=== PATIENT | female | born 1995 | race African-American/Black ===

== ENCOUNTER 2018-01-26 01:21 | Emergency (ER) | payer OTHER ==
[2018-01-26 01:31] VITALS: BP 131/85; PULSE 74; RESP 16; TEMP 98.1
[2018-01-26] MEDS ORDERED: ACETAMINOPHEN TAB 325 MG TAB PO STA (02:29)
[2018-01-26] MEDS ORDERED: BENZOCAINE/MENTHOL LOZENG 1 EACH LOZENGE MUCOUS MEM STA (02:34)
[2018-01-26] MEDS ORDERED: guaiFENesin SYRUP 100MG/5ML 200 MG/10 ML CUP PO STA (02:38)
--- NOTE | 2018-01-26 02:43 | ED ---
URI HPI - General Chief Complaint: Upper Respiratory Infection Stated Complaint: flu symptoms Time Seen by Provider: 01/26/18 02:18 Source: patient Mode of arrival: ambulatory Limitations: no limitations - History of Present Illness Initial Comments: 22-year-old female patient presents to the emergency department today for evaluation of cough, scratchy throat, nasal congestion. Patient states that she has had symptoms since this morning. Nasal drainage is clear. Denies any sputum production with the cough. States that she is 7 weeks is was unsure what she could take [id number] for symptoms. She denies any chest pain or shortness of breath with this. She denies any fevers or chills. Denies any ear pain. She denies any abdominal pain or cramping. Denies any abnormal vaginal bleeding or discharge. Patient denies any recent rash, nausea, vomiting, diarrhea, constipation, back pain, numbness, tingling, dizziness, weakness, hematuria, dysuria, urinary urgency, urinary frequency, headache, visual changes, or any other complaints. - Related Data Previous Rx's Medication Instructions Recorded Famotidine [Pepcid] 20 mg PO BID #10 tablet 02/26/15 diphenhydrAMINE [Benadryl] 50 mg PO HS PRN #5 capsule 02/26/15 predniSONE 50 mg PO DAILY #3 tab 02/26/15 Allergies Allergy/AdvReac Type Severity Reaction Status Date / Time shellfish derived [Shellfish] Allergy Rash/Hives Verified 01/26/18 01:31 Review of Systems ROS Statement: Those systems with pertinent positive or pertinent negative responses have been documented in the HPI. ROS Other: All systems not noted in ROS Statement are negative. Past Medical History Past Medical History: Asthma History of Any Multi-Drug Resistant Organisms: MRSA Date of last positivie culture/infection: 2009 MDRO Source:: arm Past Surgical History: Orthopedic Surgery Past Psychological History: No Psychological Hx Reported Smoking Status: Never smoker Past Alcohol Use History: None Reported Past Drug Use History: Marijuana General Exam Limitations: no limitations General appearance: alert, in no apparent distress, other (This is a well- developed, well-nourished adult female patient in no acute distress. Vital signs upon presentation are temperature 98.1F, pulse 74, respirations 16, blood pressure 131/85, pulse ox 100% on room air.) Eye exam: Present: normal appearance, PERRL, EOMI. Absent: scleral icterus, conjunctival injection, periorbital swelling ENT exam: Present: mucous membranes moist, TM's normal bilaterally. Absent: normal exam, normal oropharynx (Pharyngeal erythema. No tonsillar exudate or hypertrophy.) Respiratory exam: Present: normal lung sounds bilaterally. Absent: respiratory distress, wheezes, rales, rhonchi, stridor Cardiovascular Exam: Present: regular rate, normal rhythm, normal heart sounds. Absent: systolic murmur, diastolic murmur, rubs, gallop, clicks GI/Abdominal exam: Present: soft, normal bowel sounds. Absent: distended, tenderness, guarding, rebound, rigid Neurological exam: Present: alert, oriented X3, CN II-XII intact Psychiatric exam: Present: normal affect, normal mood Skin exam: Present: warm, dry, intact, normal color. Absent: rash Course Vital Signs 01/26/18 01:28 Temperature 98.1 F Pulse Rate 74 Respiratory 16 Rate Blood Pressure 131/85 O2 Sat by Pulse 100 Oximetry Medical Decision Making - Medical Decision Making 22-year-old female patient presents to the emergency department today with chief complaint of upper respiratory symptoms. Symptoms include cough, sore throat, nasal congestion. Patient is afebrile reports no shortness of breath or sputum production. She is 7 weeks . She was given Tylenol, Robitussin, and cough drops here in the emergency department. She was given recommendations for symptomatic relief with bibx-umz-skkdvoq medication. She is instructed to follow-up with her astronautical engineer and primary care physician for recheck as soon as possible. Return parameters were discussed in detail. She verbalizes understanding and agrees with this plan. Disposition Clinical Impression: Viral upper respiratory infection Disposition: HOME SELF-CARE Condition: Good Instructions: Upper Respiratory Infection (ED) Additional Instructions: Some medications you may try are [id number] that are safe in : Nasal Saline (for nasal congestion) Afrin (for nasal congestion) (No longer than three days) Cough drops and lozenges (For sore throat) Tylenol (For pain and fever) Robitussin (for cough) Increase fluids. Get adequate rest. Follow up with your primary care physician or OBGYN for recheck as soon as possible. Is patient prescribed a controlled substance at d/c from ED?: No Referrals: None,Stated [Primary Care Provider] - 1-2 days Time of Disposition: 02:43
== END 2018-01-26 02:53 | disposition home or self-care (01) ==
LOC: EC 01:21
DX: O99.511 Diseases of the respiratory system complicating pregnancy, first trimester (principal); J06.9 Acute upper respiratory infection, unspecified; Z91.013 Allergy to seafood; Z86.14 Personal history of Methicillin resistant Staphylococcus aureus infection; Z3A.01 Less than 8 weeks gestation of pregnancy
CPT/HCPCS: 99283

== ENCOUNTER 2019-03-28 12:10 | Emergency (ER) | payer OTHER ==
[2019-03-28] MEDS ORDERED: ACETAMINOPHEN TAB 325 MG TAB PO STA (12:30)
[2019-03-28] MEDS ORDERED: ALBUTEROL NEBULIZED 2.5 MG/3 ML INHALATION STA (12:33)
[2019-03-28] MEDS ORDERED: predniSONE 50 MG TAB PO STA (12:33)
--- NOTE | 2019-03-28 13:11 | XR ---
EXAMINATION TYPE: XR chest 2V DATE OF EXAM: 03/28/2019 COMPARISON: 05/11/2013 HISTORY: 23-year-old female with cough and fever TECHNIQUE: PA and lateral views FINDINGS: The cardiomediastinal silhouette, aorta, and pulmonary vasculature are within normal limits. Lungs an d pleural spaces are clear. IMPRESSION: No acute cardiopulmonary process.
--- NOTE | 2019-03-28 13:16 | ED ---
URI HPI - General Chief Complaint: Upper Respiratory Infection Stated Complaint: fever/cough/sore throat Time Seen by Provider: 03/28/19 12:15 Source: patient Mode of arrival: ambulatory Limitations: no limitations - History of Present Illness Initial Comments: 23-year-old female with history of asthma presenting today for chief complaint cough congestion sore throat and ear pain. Patient states the past 2-3 days she has had congestion cough sore throat and ear pain she states she now has rib pain when she coughs bilaterally. She states she has no shortness of breath. Patient denies chest pain. Patient states the pain is likely present when she coughs. Patient denies any difficulty breathing or swallowing. Tolerating oral secretions. Patient denies for chest pain. Patient denies any nausea vomiting diarrhea or rashes. Patient denies , recent antibiotics use. Denies any previous hospitalizations or intubations secondary to asthma. Patient appears well on arrival there is no signs of acute distress. Patient has obvious nasal congestion. - Related Data Previous Rx's Medication Instructions Recorded Famotidine [Pepcid] 20 mg PO BID #10 tablet 02/26/15 diphenhydrAMINE [Benadryl] 50 mg PO HS PRN #5 capsule 02/26/15 predniSONE 50 mg PO DAILY #3 tab 02/26/15 Oseltamivir [Tamiflu] 75 mg PO Q12HR 5 Days #10 cap 03/28/19 Allergies Allergy/AdvReac Type Severity Reaction Status Date / Time shellfish derived [Shellfish] Allergy Rash/Hives Verified 03/28/19 12:11 Review of Systems ROS Statement: Those systems with pertinent positive or pertinent negative responses have been documented in the HPI. ROS Other: All systems not noted in ROS Statement are negative. Past Medical History Past Medical History: Asthma History of Any Multi-Drug Resistant Organisms: MRSA Date of last positivie culture/infection: 2009 MDRO Source:: arm Past Surgical History: Orthopedic Surgery Past Psychological History: No Psychological Hx Reported Smoking Status: Current every day smoker Past Alcohol Use History: Occasional Past Drug Use History: Marijuana General Exam - General Exam Comments Initial Comments: General: The patient is awake and alert, in no distress, and does not appear acutely ill. Eye: +3 mm pupils are equal, round and reactive to light, extra-ocular movements are intact. No nystagmus. There is normal conjunctiva bilaterally. No signs of icterus. No photophobia Ears, nose, mouth and throat: There are moist mucous membranes and no oral lesions. Oropharynx was not erythematous there is no tonsillar enlargement exudates or lesions. Uvula midline. Tympanic membranes are not erythematous or is no effusions bulging or retraction. No tenderness to palpation of the mastoid. No anterior cervical lymphadenopathy. Rhinorrhea, clear and bilateral nares. No tripoding, no drooling. Neck: The neck is supple, there is no tenderness or JVD. No nuchal rigidity Cardiovascular: There is a regular rate and rhythm. No murmur, rub or gallop is appreciated. Respiratory: Respirations are non-labored, breath sounds are equal. Mild expiratory wheeze. No stridor, rales, or rhonchi. No retractions or abdominal breathing. Gastrointestinal: Soft, non-distended, non-tender abdomen without masses or organomegaly noted. There is no rebound or guarding present. Bowel sounds are unremarkable. Musculoskeletal: Normal ROM, no tenderness. Strength 5/5. Sensation intact. Radial pulses equal bilaterally 2+. Neurological: A&O x 3. CN II-XII intact grossly, There are no obvious motor or sensory deficits. Coordination appears grossly intact. Speech appears normal, no muffling. Skin: Skin is warm and dry and no rashes or lesions are noted. No extremity edema Psychiatric: Cooperative Limitations: no limitations Course Vital Signs 03/28/19 03/28/19 03/28/19 12:12 12:50 13:02 Temperature 98.6 F Pulse Rate 86 80 84 Respiratory 16 Rate Blood Pressure 143/97 O2 Sat by Pulse 97 Oximetry 03/28/19 13:59 Temperature 99.2 F Pulse Rate 83 Respiratory 18 Rate Blood Pressure 128/75 O2 Sat by Pulse 97 Oximetry Medical Decision Making - Medical Decision Making 23-year-old female presenting today for chief complaint of sore throat congestion cough. Influenza A +. CXR clear. Lung sounds with mild expiratory wheeze improved with 1 albuterol treatment. Patient given oral prednisone in the ER. Patient will be discharged with tamiflu, outpatient PCP follow-up and instruction for symptomatically control including use of antipyretics such as Tylenol and ibuprofen. Return parameters were discussed at length patient verbalizes understanding and she was discharged appearing well after discussing case with Dr Borjas - Lab Data Lab Results 03/28/19 03/28/19 Range/Units 12:34 12:34 Influenza Type A RNA Detected H (Not Detectd) Influenza Type B (PCR) Not Detected (Not Detectd) Group A Strep Rapid Negative (Negative) Disposition Clinical Impression: Influenza A, Cough, Congestion of nasal sinus Disposition: HOME SELF-CARE Condition: Good Instructions (If sedation given, give patient instructions): Influenza (ED) Additional Instructions: Please use medication as discussed. Please follow-up with family doctor in the next 2 days. Please return to emergency room if the symptoms increase or worsen or for any other concerns. Prescriptions: Oseltamivir [Tamiflu] 75 mg PO Q12HR 5 Days #10 cap Is patient prescribed a controlled substance at d/c from ED?: No Referrals: None,Stated [Primary Care Provider] - 1-2 days [facility] [NON-STAFF] - 1-2 days Time of Disposition: 13:44
[2019-03-28 14:04] VITALS: BP 128/75; PULSE 83; RESP 18; TEMP 99.2
== END 2019-03-28 13:59 | disposition home or self-care (01) ==
LOC: EC 12:10
DX: J10.1 Influenza due to other identified influenza virus with other respiratory manifestations (principal); F17.200 Nicotine dependence, unspecified, uncomplicated; Z91.013 Allergy to seafood; Z87.09 Personal history of other diseases of the respiratory system; Z86.14 Personal history of Methicillin resistant Staphylococcus aureus infection
CPT/HCPCS: 94640; 87081; 87430; 87502; 71046; 99284; J7512

== ENCOUNTER 2019-03-29 11:22 | Emergency (ER) | payer OTHER ==
--- NOTE | 2019-03-29 13:53 | ED ---
General Adult HPI - General Chief complaint: Recheck/Abnormal Lab/Rx Stated complaint: Female Time Seen by Provider: 03/29/19 13:00 Source: patient, RN notes reviewed, old records reviewed Mode of arrival: ambulatory Limitations: no limitations - History of Present Illness Initial comments: Patient is a 23-year-old female recently diagnosed with influenza. She presents emergency department today with concern that her last sexual partner had told her that she he was positive for HPV. Patient reports that she's having no symptoms in regards to this. She states that she has had no abnormal vaginal discharge. Denies chance of . Patient states that she was recently treated with antibiotics for respiratory infection and believes that she is currently doing with the minor yeast infection. - Related Data Previous Rx's Medication Instructions Recorded Famotidine [Pepcid] 20 mg PO BID #10 tablet 02/26/15 diphenhydrAMINE [Benadryl] 50 mg PO HS PRN #5 capsule 02/26/15 predniSONE 50 mg PO DAILY #3 tab 02/26/15 Oseltamivir [Tamiflu] 75 mg PO Q12HR 5 Days #10 cap 03/28/19 Fluconazole [Diflucan] 150 mg PO ONCE #3 tab 03/29/19 Fluconazole [Diflucan] 150 mg PO ONCE #3 tab 03/29/19 Allergies Allergy/AdvReac Type Severity Reaction Status Date / Time shellfish derived [Shellfish] Allergy Rash/Hives Verified 03/29/19 12:25 Review of Systems ROS Statement: Those systems with pertinent positive or pertinent negative responses have been documented in the HPI. ROS Other: All systems not noted in ROS Statement are negative. Past Medical History Past Medical History: Asthma History of Any Multi-Drug Resistant Organisms: MRSA Date of last positivie culture/infection: 2009 MDRO Source:: arm Past Surgical History: Orthopedic Surgery Past Psychological History: No Psychological Hx Reported Smoking Status: Current every day smoker Past Alcohol Use History: Occasional Past Drug Use History: Marijuana General Exam - General Exam Comments Initial Comments: 23-year-old female. Alert and oriented. No distress. Limitations: no limitations General appearance: alert, in no apparent distress Head exam: Present: atraumatic, normocephalic, normal inspection Eye exam: Present: normal appearance, PERRL, EOMI. Absent: scleral icterus, conjunctival injection, periorbital swelling ENT exam: Present: normal exam, mucous membranes moist Neck exam: Present: normal inspection. Absent: tenderness, meningismus, lymphadenopathy Respiratory exam: Present: normal lung sounds bilaterally. Absent: respiratory distress, wheezes, rales, rhonchi, stridor Cardiovascular Exam: Present: regular rate, normal rhythm, normal heart sounds. Absent: systolic murmur, diastolic murmur, rubs, gallop, clicks GI/Abdominal exam: Present: soft, normal bowel sounds. Absent: distended, tenderness, guarding, rebound, rigid External exam: Present: normal external exam Speculum exam: Present: normal speculum exam, vaginal discharge (Minimal white adherent vaginal discharge consistent with he's infection) By manual exam: Present: normal by manual exam Extremities exam: Present: normal inspection, full ROM, normal capillary refill. Absent: tenderness, pedal edema, joint swelling, calf tenderness Back exam: Present: normal inspection Neurological exam: Present: alert, oriented X3, CN II-XII intact Psychiatric exam: Present: normal affect, normal mood Skin exam: Present: warm, dry, intact, normal color. Absent: rash Course Vital Signs 03/29/19 03/29/19 12:21 14:02 Temperature 99.5 F 98 F Pulse Rate 112 H 83 Respiratory 20 18 Rate Blood Pressure 128/86 132/90 O2 Sat by Pulse 98 97 Oximetry Medical Decision Making - Medical Decision Making 23-year-old female presented for concern for being told that she was exposed to possible HPV. I discussed with did not test for this emergency department she is follow-up with [facility] [employer]. On clinical exam I see no signs of genital warts. No adnexal tenderness or cervical motion tenderness. She did have a small amount of white discharge consistent with yeast infection. Discussed treatment with Diflucan. Discussed testing for chlamydia gonorrhea and trichomonas but this time she has no clinical signs or concerns for that. I discussed the Patient should follow-up with PCP and return parameters were discussed. - Lab Data Lab Results 03/29/19 Range/Units 13:48 Trichomonas Ag (Rapid) Negative (Negative) Disposition Clinical Impression: Yeast infection, HPV exposure Disposition: HOME SELF-CARE Condition: Good Instructions (If sedation given, give patient instructions): Yeast Infection (ED) Additional Instructions: Please use medication as discussed. Please follow up with family doctor if symptoms have not improved over the next two days. Please return to the emergency room if your symptoms increase or worsen or for any other concerns. Prescriptions: Fluconazole [Diflucan] 150 mg PO ONCE #3 tab Fluconazole [Diflucan] 150 mg PO ONCE #3 tab Is patient prescribed a controlled substance at d/c from ED?: No Referrals: None,Stated [Primary Care Provider] - 1-2 days Sharyn Ramos DO [Doctor of Osteopathic Medicine] - 1-2 days Time of Disposition: 13:52
[2019-03-29 14:03] VITALS: BP 132/90; PULSE 83; RESP 18; TEMP 98
[2019-03-30 13:13] LABS: C. trachomatis,PCR Negative (Neg,Equiv); Chlamydia trachomatis Source Vagina; N. gonorrhoeae,PCR Negative (Neg,Equiv); Neisseria Source Vagina
== END 2019-03-29 14:03 | disposition home or self-care (01) ==
LOC: EC 11:22
DX: B37.9 Candidiasis, unspecified (principal); B97.7 Papillomavirus as the cause of diseases classified elsewhere; F17.200 Nicotine dependence, unspecified, uncomplicated; Z91.013 Allergy to seafood; Z86.14 Personal history of Methicillin resistant Staphylococcus aureus infection
CPT/HCPCS: 87070; 87491; 87591; 87808; 99284

== ENCOUNTER 2022-07-01 13:03 | Emergency (ER) | payer SELFPAY ==
[2022-07-01 13:07] VITALS: TEMP 97.7
[2022-07-01] MEDS ORDERED: methylPREDNISolone SOD SUCCI 125 MG/2 ML VIAL IM ONE (13:18)
[2022-07-01] MEDS ORDERED: TRIAMCINOLONE 0.1% CREAM 80 GM TUBE TOPICAL ONE (13:18)
--- NOTE | 2022-07-01 13:23 | ED ---
Skin/Abscess/FB HPI - General Chief complaint: Skin/Abscess/Foreign Body Stated complaint: poss allergic reaction Time Seen by Provider: 07/01/22 13:10 Source: patient, RN notes reviewed Mode of arrival: ambulatory Limitations: no limitations - History of Present Illness Initial comments: This is a 26-year-old female who presents to the emergency department for concerns of an allergic reaction to hair dye. States that she used hair dye 4 days ago and has started to develop pain, blisters, and redness along her scalp, tops of her ears, and forehead. This has never happened to her before. She's been using iiqf-vam-skysiyv hydrocortisone cream with only minor improvement in the itching. Denies any chest pain or shortness of breath associated with this. Denies any fevers, chills, sore throat, cough, dyspnea, chest pain, palpitations, abdominal pain, nausea, vomiting, diarrhea, back pain, or headaches. MD complaint: rash Onset/Timin -: days(s) Tetanus Up to Date: yes - Related Data Home Medications Medication Instructions Recorded Confirmed Albuterol Sulfate [Ventolin HFA] 1 - 2 puff INHALATION RT-Q6H PRN 07/01/22 07/01/22 Previous Rx's Medication Instructions Recorded hydrOXYzine HCL [Atarax] 25 mg PO QID PRN #15 tab 07/01/22 predniSONE 50 mg PO DAILY 4 Days #4 tab 07/01/22 Allergies Allergy/AdvReac Type Severity Reaction Status Date / Time shellfish derived [Shellfish] Allergy Rash/Hives Verified 07/01/22 14:52 Review of Systems ROS Statement: Those systems with pertinent positive or pertinent negative responses have been documented in the HPI. ROS Other: All systems not noted in ROS Statement are negative. Past Medical History Past Medical History: Asthma History of Any Multi-Drug Resistant Organisms: MRSA Date of last positivie culture/infection: 2009 MDRO Source:: arm Past Surgical History: Orthopedic Surgery Past Psychological History: ADD/ADHD Smoking Status: Vaper Past Alcohol Use History: Occasional Past Drug Use History: Marijuana General Exam Limitations: no limitations General appearance: alert, in no apparent distress Head exam: Present: atraumatic, normocephalic Respiratory exam: Present: normal lung sounds bilaterally. Absent: respiratory distress, wheezes, rales, rhonchi, stridor Cardiovascular Exam: Present: regular rate, normal rhythm, normal heart sounds. Absent: systolic murmur, diastolic murmur, rubs, gallop, clicks Neurological exam: Present: alert, oriented X3, CN II-XII intact Psychiatric exam: Present: normal affect, normal mood Skin exam: Present: other (Erythema and scaling with overlying tenderness along the hairline on the forehead, top of the ears, and behind the ears.) Course Vital Signs 07/01/22 07/01/22 13:05 14:57 Temperature 97.7 F 97.7 F Pulse Rate 99 84 Respiratory 18 16 Rate Blood Pressure 134/90 130/79 O2 Sat by Pulse 100 100 Oximetry Medical Decision Making - Medical Decision Making This is a 26-year-old female who presents to the emergency department with a possible allergic reaction to hair dye. Was pt. sent in by a medical professional or institution? @ -No Did you speak to anyone other than the patient for history? @ -No Did you review nursing and triage notes? @ -Yes, and I agree, it is accurate with regards to the patient's symptoms. Were old charts reviewed? @ -No Differential Diagnosis? @ -Differential Rash: measles, Lyme disease, erythema multiforme, cellulitis, toxic shock syndrome, Cuong Adrian syndrome, Kawasaki disease, clemente mountain spotted fever, contact dermatitis, allergic dermatitis, measles, mumps, rubella, varicella, meningococcal disease, drug reaction, coxsackievirus, This is not meant to be an all-inclusive list. EKG interpreted by me (3pts min.)? @ -Not obtained X-rays interpreted by me (1pt min.)? @ -Not obtained CT interpreted by me (1pt min.)? @ -Not obtained U/S interpreted by me (1pt. min.)? @ -Not obtained What testing was considered but not performed? (CT, X-rays, U/S, labs)? Why? @ -None What meds were considered but not given? Why? @ -None Did you discuss the management of the patient with other professionals? @ -No Did you reconcile home meds? @ -No Was smoking cessation discussed for >3mins.? @ -No Was critical care preformed (if so, how long)? @ -No Were there social determinants of health that impacted care today? How? (Homelessness, low income, unemployed, alcoholism, drug addiction, transportation, low edu. Level, literacy, decrease access to med. care, long-term, rehab)? @ -No Was there de-escalation of care discussed even if they declined? (Discuss DNR or withdrawal of care, Hospice)? @ -No What co-morbidities impacted this encounter? (DM, HTN, Smoking, COPD, CAD, Cancer, CVA, Hep., AIDS, mental health diagnosis, sleep apnea, morbid obesity)? @ -None Was patient admitted / discharged? @ -Discharged. Physical exam consistent with a contact dermatitis. IM Solu- Medrol administered in the emergency department. She was also given a bottle of triamcinolone cream which was applied to the affected areas. Instructed her to use the cream up to 3-4 times daily for no more than 7 days. Prescription for an additional 4 days of prednisone as well as Atarax was provided with dosing instructions reviewed. She was told not to take the first dose of prednisone until tomorrow, as she received Solu-Medrol in the emergency department. Advised that the Atarax can be used up to 4 times daily, however it is sedating and she should avoid driving or operating machinery when taking this. She is also instructed to avoid taking it with any other malw-yhc-eompbyi antihistamines such as Benadryl. She is otherwise instructed to follow-up with her PCP for reevaluation of symptoms. Undiagnosed new problem with uncertain prognosis? @ -None Drug Therapy requiring intensive monitoring for toxicity (Heparin, Nitro, Insulin, Cardizem)? @ -None Were any procedures done? @ -None Diagnosis/symptom? @ -Contact dermatitis Acute, or Chronic, or Acute on Chronic? @ -Acute Uncomplicated (without systemic symptoms) or Complicated (systemic symptoms)? @ -Uncomplicated Side effects of treatment? @ -None Exacerbation, Progression, or Severe Exacerbation] @ -Not applicable Poses a threat to life or bodily function? @ -No Return precautions reviewed in depth, the patient is instructed to return to the emergency department with any new, worsening, or concerning symptoms. Patient verbalized understanding. This case was discussed in detail with the attending ED physician, Dr. Michelle. Presentation, findings, and treatment plan discussed in detail as well. Disposition Clinical Impression: Contact dermatitis Disposition: HOME SELF-CARE Instructions (If sedation given, give patient instructions): Contact Dermatitis (ED) Additional Instructions: Return to the emergency department with any new, worsening, or concerning symptoms. You can use the steroid cream provided here 3-4 times daily for up to 7 days. Take the prednisone daily for 4 days as well, with your first dose beginning tomorrow, as you received a shot in the emergency department today. The Atarax prescribed can be used up to 4 times daily as needed for itching. If you choose to take this, do not take it with Benadryl or any other antihistamines. Be aware that this may make you sleepy. Follow up with your primary care provider in 1-2 days. Prescriptions: hydrOXYzine HCL [Atarax] 25 mg PO QID PRN #15 tab PRN Reason: Itching predniSONE 50 mg PO DAILY 4 Days #4 tab Is patient prescribed a controlled substance at d/c from ED?: No Referrals: None,Stated [Primary Care Provider] - 1-2 days
[2022-07-01] MEDS ORDERED: diphenhydrAMINE 50 MG/ML 1 ML VIAL IVP STA (14:04)
[2022-07-01] MEDS ORDERED: SODIUM CHLORIDE 0.9% 1,000 ML IV STA (14:04)
[2022-07-01] MEDS ORDERED: FAMOTIDINE 20 MG/2 ML VIAL IV STA (14:04)
[2022-07-01 14:59] VITALS: BP 130/79; PULSE 84; RESP 16
== END 2022-07-01 14:59 | disposition home or self-care (01) ==
LOC: EC 13:03
DX: L25.9 Unspecified contact dermatitis, unspecified cause (principal); J45.909 Unspecified asthma, uncomplicated; F12.90 Cannabis use, unspecified, uncomplicated; F17.290 Nicotine dependence, other tobacco product, uncomplicated; Z79.52 Long term (current) use of systemic steroids; Z91.013 Allergy to seafood
CPT/HCPCS: 99283; 96372; 96375; 96361; 96374; J1200; J2930